=== PATIENT | male | born 1970 | race Caucasian/White ===

== ENCOUNTER 2017-07-24 05:52 | Day surgery (SDC) | payer BC ==
--- NOTE | 2017-07-18 23:03 | HP ---
AMENDED REPORT NOW INCLUDES COSIGNER DESIGNATION - ESIGNED BEFORE ADJUSTMENT HISTORY AND PHYSICAL: DATE OF ADMISSION/SURGERY: 07/24/17 SURGEON: Elena Mills MD * (DICTATED BY AKUA MCKOY) PROCEDURE: Right knee arthroscopy with partial medial meniscectomy, possible chondroplasty, possible synovectomy. CHIEF COMPLAINT: Right knee pain. HISTORY OF PRESENT ILLNESS: Mr. Calvillo is a 46-year-old gentleman with complaints of right knee pain. An MRI confirms the medial meniscus tear. He has elected to proceed with surgery. PAST MEDICAL HISTORY: Denies. PAST SURGICAL HISTORY: Denies. CURRENT MEDICATIONS: None. ALLERGIES: None. FAMILY HISTORY: Denies. SOCIAL HISTORY: He is a 46-year-old gentleman who lives with his and 2 sons. He does not smoke or use drugs. Uses alcohol rarely. REVIEW OF SYSTEMS: A complete 14-point review of systems was reviewed with the patient and was all negative or noncontributory. He denies history of DVT, PE, hepatitis C, HIV or anesthesia problems. PHYSICAL EXAMINATION GENERAL: He is well developed, well nourished, in no acute distress. VITAL SIGNS: He stands 5 feet 9 inches tall, weighs 205 pounds. His blood pressure is 130/76, his heart rate is 69. HEENT: Normocephalic, atraumatic. NECK: Supple. No palpable lymph nodes. PULMONARY: The lungs are clear to auscultation bilaterally. CARDIAC: Regular rate and rhythm. Strong S1, S2. ABDOMEN: Soft, nontender, and nondistended. MUSCULOSKELETAL: Right lower extremity, the skin is intact. There is no open wounds or abrasions. He has some tenderness over the medial joint line. Positive Curry's. Positive Apley's. Negative Wolf's. Range of motion 0 to 125 degrees distally. Neurovascularly intact. NEUROLOGIC: He is alert and oriented x3. Cranial nerves II through XII are intact. ASSESSMENT AND PLAN: Mr. Calvillo is a 46-year-old gentleman with complaints of right knee pain. An MRI confirms the medial meniscus tear and he has elected to proceed with right knee arthroscopy with partial medial meniscectomy, possible chondroplasty, possible synovectomy. The surgery is scheduled for 06/[address] Mills discussed the risks and symptoms of the surgery on today's visit and all of his questions were answered. He will follow up with Dr. Mills 2 weeks after the surgery. KAUA MCKOY [id number]/[facility] #: [id number] [facility]LLIS HOSPITALSujatha
[2017-07-24] MEDS ORDERED: ceFAZolin 2 GM in 100 MLS NS (*) BAG IVPB ONE (06:01)
[2017-07-24] MEDS ORDERED: Buffered Lidocaine 0.9% SYRIN* 5 ML/SYR SYRINGE ONE (06:01)
[2017-07-24] MEDS ORDERED: Lidocaine 1% MPF wEPI 200,000* 30 ML SDV ONE (06:47)
[2017-07-24] MEDS ORDERED: Bupivacaine 0.25% SDV* 30 ML ONE (06:47)
[2017-07-24] MEDS ORDERED: Bupivacaine 0.5% SDV PF* 10-30ML VIAL ONE (06:47)
[2017-07-24] MEDS ORDERED: Heparin DIALYSIS ONLY(*) 1,000 UNITS/ML VIAL ONE (06:47)
[2017-07-24] MEDS ORDERED: methylPREDNISolone ACETATE 80* 80 MG/ML 1 ML VIAL ONE (06:53)
[2017-07-24] MEDS ORDERED: EPINEPHRINE 1 MG/ML 1 ML VIAL ONE (07:00)
[2017-07-24] MEDS ORDERED: Midazolam* 1 MG/ML 2 ML VIAL (2 MG) ONE (07:22)
[2017-07-24] MEDS ORDERED: fentaNYL* 50 MCG/ML 2 ML VIAL (100 MCG VIAL) ONE (07:22)
[2017-07-24] MEDS ORDERED: HYDROcodone/ACETAMIN 5-325 MG* 1 TAB PO PRN (08:01)
[2017-07-24] MEDS ORDERED: fentaNYL* 50 MCG/ML 2 ML VIAL (100 MCG VIAL) IV PRN (08:01)
[2017-07-24] MEDS ORDERED: Naloxone* 0.4 MG/ML 1 ML VIAL IV PRN (08:01)
[2017-07-24] MEDS ORDERED: HYDROmorphone INJ* 1 MG/ML CARPUJECT SYRINGE IV PRN (08:01)
[2017-07-24] MEDS ORDERED: Acetaminophen TAB* 325 MG PO PRN (08:01)
[2017-07-24] MEDS ORDERED: Lidocaine 2% PF * 5 ML VIAL ONE (08:02)
[2017-07-24] MEDS ORDERED: Ondansetron INJ* 2 MG/ML VIAL ONE (08:02)
[2017-07-24] MEDS ORDERED: Dexamethasone IV* 4 MG/ML 1 ML (4 MG) ONE (08:02)
[2017-07-24] MEDS ORDERED: Propofol* 10 MG/ML 20 ML BTL IV PUSH ONE (08:02)
[2017-07-24] MEDS ORDERED: Ketorolac INJ* 30 MG/ML 1 ML VIAL ONE (08:02)
[2017-07-24] MEDS ORDERED: oxyCODONE/Acetamin 5/325 MG* TAB ONE (08:50)
[2017-07-24 09:44] VITALS: BP 147/94
[2017-07-24] MEDS ORDERED: Sevoflurane* 1 BTL ONE (10:58)
[2017-07-24] MEDS ORDERED: EPHEDrine (Pressors)* 50 MG/ML VIAL ONE (11:25)
--- NOTE | 2017-07-25 15:12 | OP ---
OPERATIVE REPORT: DATE OF OPERATION: 07/24/17 DATE OF : 74 ATTENDING SURGEON: Elena Mills MD. CAMPUS DIRECTOR: AKUA Alexandra. Mr. Shipley did help throughout the procedure with preparation of the leg, wound retraction, manipulat ion of the knee, and wound closure. ANESTHESIOLOGIST: Dr. Simmons. ANESTHESIA: General. PRE-OP DIAGNOSIS: Right knee medial meniscal tear. POST-OP DIAGNOSES: Right knee medial meniscal tear, parrot beak type medial meniscal tear, moderate to severe degenerative osteoarthritis of the medial compartment of the knee. OPERATIVE PROCEDURE: Right knee arthroscopy with partial medial meniscectomy and medial chondroplast y. ESTIMATED BLOOD LOSS: Less than 25 cc. COMPLICATIONS: None. SPECIMEN: None. BRIEF HISTORY/INDICATIONS: Mr. Calvillo, a 46-year-old gentleman with severe right knee pain and mecha nical symptoms. He failed conservative treatment. MRI confirmed a medial meniscal tear. Due to con tinued pain and failure of conservative treatment he elected to undergo right knee arthroscopy with p artial medial meniscectomy. Informed consent was obtained from the patient. He understood the risks of surgery included but were not limited to bleeding, infection, damage to nearby structures, contin ued pain, need for further surgery, retear of the meniscus, progression of arthritis, stroke, heart a ttack, blood clot, and . He wished to proceed. INTRAOPERATIVE FINDINGS: Intraoperatively the patient was noted to have a parrot beak type tear in t he posterior one-third of the medial meniscus. This involved the white-red zone and was a complex te ar with significant displacement. The patient was also noted to have a grade 3 and 4 Outerbridge car tilage change involving the medial femoral condyle. DESCRIPTION OF PROCEDURE: Mr. Calvillo was identified in the preanesthesia unit. His right lower extre mity was marked as the correct operative site. Informed consent was signed and placed in the chart. The patient was taken to the operating room and placed under general anesthesia. Right lower extrem ity was prepped and draped in the usual sterile fashion. Preop timeout was made to correctly identif y the patient side and site. Appropriate perioperative antibiotics were given within 1 hour of incis ion. A 0.5 cm anterolateral portal incision was made with a 15 blade and carried down to the capsule. Tro car introduced. As soon as the light and water sources were turned on there was immediate visualizat ion of the suprapatellar pouch. A tour was made of the knee joint. Suprapatellar pouch showed no ob vious abnormality. Patellofemoral compartment showed a minimal cartilage degeneration. Medial gutter s showed no obvious plica or loose body. The medial compartment showed exposed subchondral bone along a large portion of the weightbearing barbie face of the medial femoral condyle. There was exposed subchondral bone and these were grade 3 and 4 Outerbridge cartilage changes. A parrot beak type tear in the posterior meniscus was also visible wi th anterior displacement. ACL and PCL were intact. The knee was placed in a [id number]-bian position. Lateral compartment showed minimal degenerative changes and no obvious meniscal tear. Lateral gutte rs showed no obvious plica or loose body. Under direct visualization a medial portal incision was made with a 15 blade. A probe was introduced and a second tour of the knee joint was performed. No additional findings were noted. The medial meniscus tear was a parrot beak type tear which was complex involving the posterior third of the medial meniscus. This involved the white-red zone. Shaver and straight biter were used to per form partial medial meniscectomy until a smooth border was obtained. Radiofrequency ablation wand wa s then used to smooth the edge of the meniscus. Further probing of the meniscus showed no further te ars. The radiofrequency ablation wand was then used to smooth any cartilage flapping along the medial femo ral condyle. This was done in a conservative fashion. The knee was copiously irrigated with sterile saline. All instruments were carefully removed. Incisions were closed using 3-0 nylon suture. Int raarticular injection of 80 mg Depo-Medrol and 6 cc of 0.25% Marcaine was placed in the knee joint. The incisions were covered with Xeroform, 4x4, and Webril. Tray wrap and cold pack were placed over t his. The patient's anesthesia was reversed without difficulty. He was taken to the PACU in stable conditi on. Intended weightbearing will be weightbearing as tolerated. Intended DVT prophylaxis will be aspi rin for 2 weeks. [id number]/[facility] #: [id number]
== END 2017-07-24 09:45 | disposition home or self-care (01) ==
LOC: OR 05:52
PROVIDERS: ATTEND Orthopaedic Surgery Adult Reconstructive Orthopaedic Surgery
DX: M23.231 Derangement of other medial meniscus due to old tear or injury, right knee (principal); M17.11 Unilateral primary osteoarthritis, right knee; K21.9 Gastro-esophageal reflux disease without esophagitis
CPT/HCPCS: A9270-GY; J1040; J1100; J1644; J1885; J2001; J2250; J2405; J2704; J3010